=== PATIENT | female | born 1985 | race Two or more races ===

== ENCOUNTER 2017-09-28 14:59 | Outpatient (CLI) | payer OTHER | END 2017-09-28 15:05 | disposition home or self-care (01) | LOC: SONOGRAMA 14:59 | DX: N60.11 Diffuse cystic mastopathy of right breast (principal); N60.12 Diffuse cystic mastopathy of left breast ==

== ENCOUNTER 2017-10-28 13:48 | Outpatient (CLI) | payer OTHER | END 2017-10-28 14:38 | disposition home or self-care (01) | LOC: MAMO-SONO 13:48 | DX: C50.211 Malignant neoplasm of upper-inner quadrant of right female breast (principal); N60.12 Diffuse cystic mastopathy of left breast ==

== ENCOUNTER 2017-11-03 11:12 | Outpatient (CLI) | payer OTHER | END 2017-11-03 14:25 | disposition home or self-care (01) | LOC: NUCLEAR 11:12 | DX: C50.211 Malignant neoplasm of upper-inner quadrant of right female breast (principal) | CPT/HCPCS: 78472; 78496; A9560 ==

== ENCOUNTER 2017-11-09 14:44 | Outpatient (CLI) | payer OTHER | END 2017-11-09 14:53 | disposition home or self-care (01) | LOC: SONOGRAMA 14:44 | DX: C50.211 Malignant neoplasm of upper-inner quadrant of right female breast (principal) ==

== ENCOUNTER 2018-04-03 06:12 | Day surgery (SDC) | payer OTHER ==
[~2018-04-03 06:12] MED LIST: OMEPRAZOLE20 M1; RANITIDINE HCL300 MG
== END 2018-04-04 11:06 | disposition home or self-care (01) ==
LOC: CIR.AMB 06:12
DX: C50.411 Malignant neoplasm of upper-outer quadrant of right female breast (principal); N62 Hypertrophy of breast; D24.2 Benign neoplasm of left breast

== ENCOUNTER 2018-04-27 08:14 | Outpatient (CLI) | payer OTHER | END 2018-04-27 09:06 | disposition home or self-care (01) | LOC: NUCLEAR 08:14 | DX: C50.211 Malignant neoplasm of upper-inner quadrant of right female breast (principal) | CPT/HCPCS: 78472; 78496; A9560 ==

== ENCOUNTER → 2018-09-13 | Outpatient (CLI) | payer OTHER ==
[~2018-09-13] MED LIST changes: +FEMARA2.5 MG
== END | disposition home or self-care (01) ==
LOC: NUCLEAR 09:06
DX: C50.211 Malignant neoplasm of upper-inner quadrant of right female breast (principal)
CPT/HCPCS: 78815; A9552

== ENCOUNTER 2018-09-15 11:04 | Emergency (ER) | payer OTHER ==
[~2018-09-15] VITALS: Ht 160 cm; Wt 74.4 kg
[~2018-09-15 11:04] MED LIST changes: -FEMARA2.5 MG
[2018-09-15] MEDS ORDERED: FEMARA2.5 MG (11:14)
== END 2018-09-15 12:34 | disposition home or self-care (01) ==
LOC: ER 11:04
DX: L03.012 Cellulitis of left finger (principal)

== ENCOUNTER 2019-01-03 07:55 | Outpatient (CLI) | payer OTHER ==
[~2019-01-03 07:55] MED LIST changes: +FEMARA2.5 MG
== END 2019-01-03 08:04 | disposition home or self-care (01) ==
LOC: SONOGRAMA 07:55
DX: R94.5 Abnormal results of liver function studies (principal); K76.0 Fatty (change of) liver, not elsewhere classified

== ENCOUNTER 2021-07-22 10:41 | Outpatient (CLI) | payer OTHER | END 2021-07-22 10:54 | disposition home or self-care (01) | LOC: TOM 10:41 | PROVIDERS: ATTEND Internal Medicine | DX: C50.211 Malignant neoplasm of upper-inner quadrant of right female breast (principal); Z79.818 Long term (current) use of other agents affecting estrogen receptors and estrogen levels; Z51.12 Encounter for antineoplastic immunotherapy; R94.5 Abnormal results of liver function studies ==

== ENCOUNTER 2021-07-22 11:39 | Outpatient (CLI) | payer OTHER | END 2021-07-22 11:41 | disposition home or self-care (01) | LOC: LAB 11:39 | PROVIDERS: ATTEND Radiology Diagnostic Radiology | DX: R94.5 Abnormal results of liver function studies (principal) ==

== ENCOUNTER 2022-09-09 12:14 | Outpatient (CLI) | payer OTHER | END 2022-09-09 12:21 | disposition home or self-care (01) | LOC: SONOGRAMA 12:14 | PROVIDERS: ATTEND Internal Medicine Nephrology | DX: I10 Essential (primary) hypertension (principal) ==